=== PATIENT | female | born 1945 | race Asian ===

== ENCOUNTER 2018-12-05 10:37 | Day surgery (SDC) | payer OTHER ==
[~2018-12-05] VITALS: Ht 30.5 cm; Wt 0.5 kg
== END 2018-12-05 14:05 | disposition home or self-care (01) ==
LOC: OR 10:37
PROC: 3E0R33Z Introduction of Anti-inflammatory into Spinal Canal, Percutaneous Approach (ICD-10-PCS; principal; 2018-12-05)
PROC: B01BYZZ Fluoroscopy of Spinal Cord using Other Contrast (ICD-10-PCS; 2018-12-05)
DX: M51.16 Intervertebral disc disorders with radiculopathy, lumbar region (principal)
CPT/HCPCS: J1020

== ENCOUNTER 2019-01-30 10:20 | Day surgery (SDC) | payer OTHER | END 2019-01-30 14:15 | disposition home or self-care (01) | LOC: OR 10:20 | PROC: 3E0U3BZ Introduction of Anesthetic Agent into Joints, Percutaneous Approach (ICD-10-PCS; principal; 2019-01-30) | PROC: 3E0U33Z Introduction of Anti-inflammatory into Joints, Percutaneous Approach (ICD-10-PCS; 2019-01-30) | DX: M53.3 Sacrococcygeal disorders, not elsewhere classified (principal); M46.1 Sacroiliitis, not elsewhere classified | CPT/HCPCS: J1020; J3490 ==

== ENCOUNTER 2019-04-03 09:50 | Day surgery (SDC) | payer OTHER | END 2019-04-03 11:43 | disposition home or self-care (01) | LOC: OR 09:50 | PROC: 3E0R33Z Introduction of Anti-inflammatory into Spinal Canal, Percutaneous Approach (ICD-10-PCS; principal; 2019-04-03) | PROC: 3E0R3BZ Introduction of Anesthetic Agent into Spinal Canal, Percutaneous Approach (ICD-10-PCS; 2019-04-03) | DX: M53.3 Sacrococcygeal disorders, not elsewhere classified (principal); M46.1 Sacroiliitis, not elsewhere classified | CPT/HCPCS: J1020; J3490 ==